=== PATIENT | male | born 1990 | race Asian ===

== ENCOUNTER 2023-06-09 09:39 | Outpatient (AMB) | payer OTHER, SELFPAY ==
--- NOTE | 2023-06-09 09:43 | A.OFFVIS_ITS ---
Intake Vital Signs 06/09/23 09:45 Height 5 ft 7 in Weight 141 lb 1.533 oz BMI 22.1 BP 101/53 L Blood Pressure Location Lt brachial Position Sitting Pulse 74 Intake Visit Reasons: Epigastric pain Intake Note: Shawna presents in the office as a new patient for epigastric pains. CC: He states that he gets pains in his stomach at times. He has breathing issues at night and he at times gets acid reflux. Once in a while he will have i ssues with his swallowing but he will feel like he does not want to eat or he will throw up. Refrigerating Oiler Required: No Allergies house dust Allergy (Mild, Verified 06/09/23 09:45) Unknown HPI Epigastric pain HPI Details 33 yr old patient being seen for assessm ent for assorted GI sx He has noted choking sensation for months he has occ heartburn samuel with oily foods very occasionally he feels food getting stuck he has v occasional constipation he has very rare abdominal pain no blood in stools, no melena appetite is good very occ nausea PMH: CECELIA PSH: appendectomy SH: non smoker, no drugs, no alcohol, works in IT FH: no FH of cancer or stomach issues ROS: Constitutional : No Weight loss, No Fever, No Chills ENT/Mouth : No sore throat, No Rhinorrhea Eyes: No Swelling, No Redness Cardiovascular : No Chest Pain, No SOB, No Edema Respiratory : No Cough, No Sputum, No Wheezing Gastrointestinal : see HPI Genitourinary : NO Dysuria, No Urinary Frequency, No Hematuria, No Urgency Musculoskeletal : No joint pain, No Myalgias, No Joint Swelling Skin : No Skin Lesions, No rash Neuro : No Weakness, No Numbness, No Dizziness, No Headache Psych : No Anxiety/Panic, No Depression Heme/Lymph: No Bruising, No Lymphadenopathy Endocrine : No Polyuria, No Polydipsia All other systems reviewed and are negative. EXAM: GENERAL: The patient is well developed and nontoxic. VITAL SIGNS:see workflow HEENT: Nonicteric sclerae, PERRLA, EOMI. Oropharynx clear. Moist mucous membranes. Conjunctivae appear well perfused. No thyroid mass. CHEST: Chest wall is nontender. HEART: Regular rate and rhythm without murmurs. LUNGS: Clear to auscultation bilaterally. ABDOMEN: Soft, positive bowel sounds, nontender, no organomegaly.no flank tenderness SKIN: No rash, no excessive bruising, petechiae, or purpura. NEUROLOGIC: Cranial nerves II-XII intact without motor/sensory deficit. Psych: nm affect A/P: 1/ Choking, bouts with nausea and possib le CECELIA vs subclinical GERD and aspiration Plan: 1/ EGD for further assessment with luevano Physical Exam Vital Signs: Last Vital Signs Pulse 74 06/09/23 09:45 BP 101/53 L 06/09/23 09:45 BMI result Body Mass Index 22.1 Assessment & Plan Assessment & Plan (1) Choking due to food (regurgitated): Code(s): T17.320A - Food in larynx causing asphyxiation, initial encounter; W44.F3XA - Food entering into or through a natural orifice, initial encounter Coding Level of Care Code New Pt Level 4 (54482) Diagnoses Choking due to food (regurgitated) T17.320A; W44.F3XA
[2023-06-09 09:45] VITALS: BP 101/53; PULSE 74; BMI 22.1
== END 2023-06-09 10:09 | disposition home or self-care (01) ==
PROVIDERS: PCP Internal Medicine; Visit Provider Internal Medicine Gastroenterology
DX: T17.320A Food in larynx causing asphyxiation, initial encounter (principal); W44.F3XA Food entering into or through a natural orifice, initial encounter
CPT/HCPCS: 99204

== ENCOUNTER → 2023-06-09 09:39 | Outpatient (BNVA) | payer OTHER, SELFPAY | PROVIDERS: PCP Internal Medicine; Visit Provider Internal Medicine Gastroenterology ==

== ENCOUNTER 2023-06-18 12:02 | Day surgery (SDC) | payer OTHER, SELFPAY ==
--- NOTE | 2023-06-17 12:18 | HO.ANESPROP2 ---
Documented by User: Lissette West NP 06/17/23 12:18 HPI - Anesthesia Eval Consult details Narrative: 33yo M for Upper Endo Lee PMFSH Active Problems Active Problems: All Active Problems (Updated 06/09/23 @ 10:09 by Beatris Santiago MD) Choking due to food (regurgitated) (Acute) Past Medical History Medical History (Updated 06/18/23 @ 12:15 by Renae Yun RN) Sleep apnea Surgical History Surgical History Hx of appendectomy Social History Social History Patient Tobacco Use Status: Never used Tobacco Use of substances other than those prescribed or required for medical reasons: No Are you DNR?: No Advance Directives: No Advance Directives Information Provided: Yes Meds Allergies Allergy/AdvReac Type Severity Reaction Status Date / Time house dust Allergy Mild Unknown Verified 06/18/23 12:15 Home Medications Medication Instructions Recorded Confirmed Last Taken Type No Known Home Meds 06/09/23 06/18/23 Unknown History Assessment and Plan Assessment Anesthesia Assessment: Chart Reviewed Documented by User: Kimberly Aranda MD 06/18/23 12:47 PMFSH Past Medical History Medical History (Updated 06/18/23 @ 12:15 by Renae Yun RN) Sleep apnea Family History Family history of problems with anesthesia: No Surgical History Surgical History Hx of appendectomy History of Problems with Anesthesia: No Social History Social History Patient Tobacco Use Status: Never used Tobacco Use of substances other than those prescribed or required for medical reasons: No Are you DNR?: No Advance Directives: No Advance Directives Information Provided: Yes Meds Allergies Allergy/AdvReac Type Severity Reaction Status Date / Time house dust Allergy Mild Unknown Verified 06/18/23 12:15 Home Medications Medication Instructions Recorded Confirmed Last Taken Type No Known Home Meds 06/09/23 06/18/23 Unknown History Exam Airway Mallampati Class: II TM Dist: >3cm Neck ROM: Full Heart: rrr Lungs: cta Assessment and Plan Assessment Anesthesia Assessment: Anesthesia Plan Discussed Final Anesthetic Review Family History of Problems with Anesthesia: No History of Problems with Anesthesia: No NPO: Yes ASA Class: II Final Preanesthetic Review: No Changes in Pt Med Stat, Meds/Allgs Chart Reviewed and Consent Obtained/Reviewed Patient Risk: Intermediate Procedure Risk: Intermediate Anesthetic Plan Anesthetic Plan: MAC: Disposition: Standard PACU
[2023-06-18 12:19] VITALS: BMI 22.4
[2023-06-18 12:23] VITALS: BP 109/73; PULSE 69; RESP 15; TEMP 36.9; O2SAT 99
[2023-06-18] MEDS: Lactated Ringers 1,000 ML 100 ML IVCONT (12:36)
--- NOTE | 2023-06-18 13:27 | MHC.SHP ---
Pre-Procedural Eval Section A Date of Service: 06/18/23 The patient is an INPATIENT: No The History & Physical has been completed within 30 days and I have reviewed it.: Yes Section B Chief Complaint: Epigastric pain Allergies: Allergies Allergy/AdvReac Type Severity Reaction Status Date / Time house dust Allergy Mild Unknown Verified 06/18/23 12:15 Plan Diagnosis/Plan: Unchanged I have reviewed the history and physical and performed a pertinent physical examination on my patient. No changes have occurred unless specified. EGD with luevano Time Spent With Patient Time: Total time managing care of this patient today ____ minutes.
--- NOTE | 2023-06-18 14:12 | W.PM.OPN ---
Operative Note Operative Note Date of Service: 06/18/23 Narrative: Procedure Description: EGD Indication: choking, GERD Anesthesia: MAC FLEXIBLE TRANSORAL UPPER GASTROINTESTINAL ENDOSCOPY UPPER ENDOSCOPY Consent: Indications for the procedure and potential complications of bleeding, perforation, reaction to medications and missed diagnosis were discussed with the patient and informed consent was obtained. Instrument: Olympus GIF H 190 J mid size upper endoscope Monitoring: Vital signs and clinical assessment, continuous EKG monitoring, Pulse oximetry, Carbon Dioxide monitoring and blood pressure monitoring were done throughout the procedure. Procedure: The patient was placed in the left lateral decubitis position and pre-procedure medications were administered and a bite block was placed. The endoscope was inserted into the mouth and advanced under direct vision to the third part of duodenum. A careful inspection was made as the upper endoscope was withdrawn including a retroflexed examination of the proximal stomach; Findings and interventions are described below. Findings: Larynx:normal Esophagus: GE junction at 40 cm, diaphragm hiatus at 40 cm, slightly lax LES, with small hiatal hernia noted, bx taken from GEJ, distal and proximal esophagus, FRANCOIS placed at 34 cm Stomach: Patchy gastric erythema. Biopsies were obtained. Grade 2 flap valve on retroflexed examination of the cardia. Duodenum: Mild duodenal erythema, bx taken Intervention: Biopsies as noted above, FRANCOIS placement Impression/Findings: gastritis duodenitis PLAN: await FRANCOIS results and biopsies
[2023-06-18 14:20] VITALS: BP 108/74; PULSE 74; RESP 16; TEMP 36.3; O2SAT 98
[2023-06-18 14:35] VITALS: BP 112/74; PULSE 61; RESP 16; O2SAT 100
[2023-06-18 14:50] VITALS: BP 113/74; PULSE 74; RESP 16; TEMP 36.3; O2SAT 100
[2023-06-18] MEDS: Ondansetron ODT 4 MG TAB.RAPDIS TRANSLINGU (15:07)
== END 2023-06-18 15:05 | disposition home or self-care (01) ==
PROVIDERS: PCP Internal Medicine; Visit Provider Internal Medicine Gastroenterology
PROC: (CPT 43239; principal; 2023-06-18 13:50)
DX: K29.80 Duodenitis without bleeding (principal); K29.70 Gastritis, unspecified, without bleeding; K44.9 Diaphragmatic hernia without obstruction or gangrene; K22.4 Dyskinesia of esophagus; G47.30 Sleep apnea, unspecified; Z99.89 Dependence on other enabling machines and devices
CPT/HCPCS: 43239; 88305; 88342; J1805; J2704

== ENCOUNTER → 2023-06-18 12:02 | Outpatient (BNV) | payer OTHER, SELFPAY | PROVIDERS: PCP Internal Medicine; Visit Provider Internal Medicine Gastroenterology | DX: K21.9 Gastro-esophageal reflux disease without esophagitis (principal); K29.70 Gastritis, unspecified, without bleeding; K29.80 Duodenitis without bleeding | CPT/HCPCS: 43239 ==